=== PATIENT | male | born 1955 | race Native Hawaiian/Other Pacific Islander ===

== ENCOUNTER 2022-05-06 22:45 | Emergency (ER) | payer OTHER ==
[~2022-05-06] VITALS: Ht 188 cm; Wt 104.3 kg
[2022-05-06 22:45] VITALS: TEMP 98.7
[2022-05-07] VITALS: BP 150/80
== END 2022-05-07 | disposition still patient (30) ==
LOC: ED 22:45
DX: R46.89 Other symptoms and signs involving appearance and behavior (principal); F30.8 Other manic episodes; Z11.52 Encounter for screening for COVID-19; Z04.6 Encounter for general psychiatric examination, requested by authority
CPT/HCPCS: 87635; 93005; 99283; U0003